=== PATIENT | female | born 1990 | race Caucasian/White ===

== ENCOUNTER 2017-12-17 13:13 | Emergency (ER) | payer SELFPAY ==
[2017-12-17] MEDS ORDERED: Bacitracin Zinc 1 Packet ONE (13:56)
== END 2017-12-17 14:01 | disposition home or self-care (01) ==
LOC: NAV ERS 13:13
DX: T63.301A Toxic effect of unspecified spider venom, accidental (unintentional), initial encounter (principal); L03.312 Cellulitis of back [any part except buttock and flank]
CPT/HCPCS: 99282

== ENCOUNTER 2018-09-21 14:24 | Emergency (ER) | payer SELFPAY ==
[2018-09-21] MEDS ORDERED: methylPREDNISolone Acetate 40 mg/ml Vial ONE (15:00)
== END 2018-09-21 15:15 | disposition home or self-care (01) ==
LOC: NAV ERS 14:24
DX: T78.40XA Allergy, unspecified, initial encounter (principal)
CPT/HCPCS: 96372; J1030

== ENCOUNTER 2019-07-02 07:33 | Emergency (ER) | payer SELFPAY ==
[2019-07-02] MEDS ORDERED: Amoxicillin/Potassium Clav 875 MG TAB ONE (08:01)
== END 2019-07-02 08:10 | disposition home or self-care (01) ==
LOC: NAV ERS 07:33
DX: K04.7 Periapical abscess without sinus (principal); Z87.891 Personal history of nicotine dependence
CPT/HCPCS: 99282

== ENCOUNTER 2019-08-03 11:22 | Emergency (ER) | payer SELFPAY ==
[~2019-08-03 11:22] MED LIST: Iopamidol 370 76% 100 ML VIAL ONE
[2019-08-03 12:05] LABS: #Basophils 0.1 thou/uL (0.0-0.2); #Eosinphils 0.4 thou/uL (0.0-0.7); #Lymphocytes 1.6 thou/uL (1.20-3.40); #Monocytes 0.6 thou/uL (0.11-0.59); #Neutrophils 6.4 thou/uL (1.40-6.50); %Basophils 0.7 % (0.0-1.0); %Eosinophils 4.1 % (0.0-10.0); %Lymphocytes 17.5 % (21.0-51.0); %Neutrophils 70.7 % (42.0-75.0); Hemoglobin 10.1 g/dL (12.0-16.0); Mean Corpuscular HGB CONC 31.3 g/dL (32.0-36.0); Mean Corpuscular Hemoglobin 25.3 pg (27.0-31.0); Mean Corpuscular Volume 80.7 fL (78.0-98.0); Mean Platelet Volume 6.3 fL (7.4-10.4); Platelet Count 392 thou/uL (130-400); RBC Distribution Width 15.8 % (11.5-14.5); Red Blood Cell (RBC) Count 4.02 mill/uL (4.20-5.40); White Blood Cell (WBC) Count 9.1 thou/uL (4.8-10.8)
[2019-08-03] MEDS ORDERED: Ondansetron PF 4 MG/2 ML Vial ONE (12:11)
[2019-08-03] MEDS ORDERED: Sodium Chloride 0.9% 1,000 ML ONE (12:12)
[2019-08-03] MEDS ORDERED: Ketorolac Tromethamine 60 MG/2 ML VIAL ONE (12:12)
[2019-08-03 12:14] LABS: Pregnancy Test - Urine (BHCG) Negative (Negative)
[2019-08-03 12:15] LABS: Bilirubin Small (Negative); Blood, Urine Trace (Negative); Clarity Cloudy (Clear); Glucose, Urine (Dipstick) Negative (Negative); Leukocyte Moderate (Negative); Nitrite Negative (Negative); Pregu Control Background? CLEAR/WHITE (CLR/WHITE); Pregu Control Bar Appear? YES (CONTROL BAR); Protein, Urine (Dipstick) 100 mg/dL (Neg-Trace)
[2019-08-03 12:21] LABS: Bacteria/HPF 2+ HPF (None Seen); Squamous Epithelial 0-3 HPF (0-3)
[2019-08-03 12:22] LABS: Amphetamine Not Detected (NotDetected); Barbiturates Screen Not Detected (NotDetected); Benzodiazepine Screen Not Detected (NotDetected); Cocaine Metabolite Screen Not Detected (NotDetected); Methadone Not Detected (NotDetected); Methamphetamine Not Detected (NotDetected); Opiate Screen Not Detected (NotDetected); Oxycodone Screen Not Detected (NotDetected); Phencyclidine (PCP) Not Detected (NotDetected); THC/Cannabinoid Screen Not Detected (NotDetected); Tricyclic Screen Not Detected (NotDetected)
[2019-08-03 12:23] LABS: Medtox Control Line Valid? VALID (VALID)
[2019-08-03 13:02] LABS: ALT (SGPT) 31 U/L (8-55); AST (SGOT) 20 U/L (5-34); Albumin 3.7 g/dL (3.5-5.0); Alkaline Phosphatase 86 U/L (40-110); Anion Gap 12 mmol/L (10-20); BUN (Urea Nitrogen) 10 mg/dL (7.0-18.7); Bilirubin, Total 0.2 mg/dL (0.2-1.2); Calc. Creatinine Clearance 0 mL/min (70-130); Calcium 9.1 mg/dL (7.8-10.44); Carbon Dioxide 26 mmol/L (22-29); Chloride 103 mmol/L (98-107); Estimated GFR-MDRD Greater than 90; Globulin 4.3 g/dL (2.4-3.5); Glucose 83 mg/dL (70-105); Lipase 8 U/L (8-78); Potassium 4.2 mmol/L (3.5-5.1); Sodium 137 mmol/L (136-145)
--- NOTE | 2019-08-03 13:18 | CT ---
CT ABDOMEN AND PELVIS WITH IV CONTRAST: 08/03/2019 PROVIDED CLINICAL HISTORY: Abdominal pain. FINDINGS: The visualized lung bases are free of significant opacity. The liver, spleen, pancreas, kidneys and adrenal glands demonstrate an unremarkable CT appearance. There is no bowel dilatation, inflammatory fat stranding, free fluid or free air apparent. The append ix appears normal. There is apparent mural thickening and mucosal enhancement involving the rectum. There are multiple l ymph nodes present within the perirectal space, which are abnormal by number but not definitely enlar ged. There is enhancement noted involving the urinary bladder mucosa. The bladder is decompressed. IMPRESSION: 1. Apparent mucosal enhancement involving the rectum. This could reflect proctitis. Other etiologies are not excluded and correlation with the physical examination is recommended. Prominent by number ly mph nodes within the perirectal fat could be reactive in nature, though the possibility of a rectal n eoplasm should be considered. 2. Mucosal enhancement involving the urinary bladder, which may reflect cystitis. POS: OFF
== END 2019-08-03 13:25 | disposition home or self-care (01) ==
LOC: NAV ERS 11:22
DX: K62.89 Other specified diseases of anus and rectum (principal)
CPT/HCPCS: 74177; 80053; 80306; 81003; 81015; 81025; 83690; 85025; 96361; 96374; 96375; J1885; J2405; J7050; Q9967

== ENCOUNTER 2019-08-27 08:58 | Emergency (ER) | payer SELFPAY | END 2019-08-27 09:34 | disposition home or self-care (01) | LOC: NAV ERS 08:58 | DX: H60.93 Unspecified otitis externa, bilateral (principal); K03.81 Cracked tooth; K02.9 Dental caries, unspecified | CPT/HCPCS: 99282 ==